=== PATIENT | male | born 1965 | race Caucasian/White ===

== ENCOUNTER 2021-04-17 13:43 | Day surgery (SDC) | payer OTHER ==
[2021-04-17] MEDS ORDERED: morphine SULFATE 4 MG/ML VIAL ONE ×2 (13:46→14:03)
[2021-04-17] MEDS ORDERED: ONDANSETRON 4 MG/2 ML VIAL ONE (13:46)
[2021-04-17] MEDS ORDERED: SODIUM CHLORIDE 0.9% 500 ML INFUS.BAG IV ONE (13:55)
[2021-04-17] MEDS ORDERED: ACETAMINOPHEN 1000 MG/100 ML VIAL IVPB ONE (13:55)
[2021-04-17 14:11] LABS: BASO % 0.3 % (0-2.0); EOS % 0.3 % (0-4.5); HEMATOCRIT 48.1 % (35.4-49); HEMOGLOBIN 16.4 GM/dL (11.7-16.9); LYMPH % 11.5 % (8-40); MCH 33.5 pg (25.7-33.7); MCHC 34.1 g/dl (32.0-35.9); MEAN CELL VOLUME 98.3 fl (80-96); MEAN PLT VOLUME 8.3 fl (7.5-11.1); MONO % 7.1 % (3.8-10.2); NEUT % 80.8 % (42.8-82.8); PLATELET COUNT 247 10^3/uL (134-434); RBC 4.89 M/mm3 (4.00-5.60); RDW 13.4 % (11.9-15.9); WHITE BLOOD COUNT 8.4 K/mm3 (4.0-10.0)
[2021-04-17 14:18] LABS: INR 1.09 (0.83-1.09); PROTHROMBIN TIME (PATIENT) 12.2 SEC (9.7-13.0)
[2021-04-17 14:21] LABS: ACTIVATED PTT 24.2 SECONDS (25.2-36.5)
[2021-04-17 14:36] LABS: CALCIUM 10.2 mg/dL (8.5-10.1)
[2021-04-17 14:37] LABS: BLOOD UREA NITROGEN 20.6 mg/dL (7-18)
[2021-04-17 14:40] LABS: CREATININE 1.2 mg/dL (0.55-1.3)
[2021-04-17 14:41] LABS: BILIRUBIN,TOTAL 0.8 mg/dL (0.2-1)
[2021-04-17] MEDS ORDERED: PIPERACILLIN/TAZOB 4.5 GM 4.5 GM in DEXTROSE 5%-WATER 100 ML IVPB ONE (14:42)
[2021-04-17 14:43] LABS: TOT PROT 7.6 g/dl (6.4-8.2)
[2021-04-17 15:02] LABS: LACTIC ACID 4.4 mmol/L (0.4-2.0)
[2021-04-17] MEDS ORDERED: PIPERACILLIN/TAZOB 4.5 GM 4.5 GM/100 ML BAG IVPB ONE (15:08)
[2021-04-17] MEDS ORDERED: morphine SULFATE 4 MG/ML VIAL IVPUSH ONE ×2 (15:16)
[2021-04-17] MEDS ORDERED: ONDANSETRON 4 MG/2 ML VIAL IVPUSH ONE (15:17)
[2021-04-17] MEDS ORDERED: PROPOFOL 20 ML ONE (17:35)
[2021-04-17] MEDS ORDERED: ROCURONIUM BROMIDE 50 MG/5 ML SYRINGE ONE (17:37)
[2021-04-17] MEDS ORDERED: MIDAZOLAM HCL 2 MG/2 ML SINGLE DOSE VIAL ONE (17:38)
[2021-04-17] MEDS ORDERED: fentaNYL CITRATE 250 MCG/5 ML VIAL ONE (17:38)
[2021-04-17 18:08] VITALS: BMI 27.1
[2021-04-17] MEDS ORDERED: ACETAMINOPHEN 325 MG TABLET (FP) PO PRN (18:12)
[2021-04-17] MEDS ORDERED: LACTATED RINGERS SOLUTION 1,000 ML IV SCH ×2 (18:15→19:27)
[2021-04-17] MEDS ORDERED: BUPIVACAINE HCL/PF 2.5 MG/ML - 30 ML VIAL IJ ONE (18:40)
[2021-04-17] MEDS ORDERED: NEOSTIGMINE METHYLSULFATE 0.5 MG/ML - 10 ML MDV ONE (18:53)
[2021-04-17] MEDS ORDERED: GLYCOPYRROLATE 0.2 MG/1 ML VIAL ONE (18:55)
[2021-04-17] MEDS ORDERED: ONDANSETRON 4 MG/2 ML VIAL IVPUSH PRN (19:17)
[2021-04-17] MEDS ORDERED: PROMETHAZINE HCL 25 MG/1 ML VIAL IVPUSH PRN (19:17)
[2021-04-17] MEDS ORDERED: ACETAMINOPHEN 1000 MG/100 ML VIAL IVPB PRN (19:18)
[2021-04-17] MEDS: LACTATED RINGERS SOLUTION 1,000 ML IV SCH (20:30)
[2021-04-17] MEDS ORDERED: GABAPENTIN 300 MG CAPSULE PO SCH (22:00)
[2021-04-17] MEDS ORDERED: traZODone HCL 50 MG TABLET (FP) PO SCH ×2 (22:00)
[2021-04-17] MEDS ORDERED: diphenhydrAMINE HCL 25 MG CAPSULE (FP) PO SCH ×2 (22:00)
[2021-04-17] MEDS: GABAPENTIN 300 MG CAPSULE PO SCH (22:08)
[2021-04-18] MEDS ORDERED: MELATONIN 5 MG TABLETS PO ONE (00:33)
[2021-04-18] MEDS: LACTATED RINGERS SOLUTION 1,000 ML IV SCH (03:22)
[2021-04-18] MEDS: GABAPENTIN 300 MG CAPSULE PO SCH (05:40)
[2021-04-18 08:31] LABS: BASO % 0.1 % (0-2.0); HEMATOCRIT 41.6 % (35.4-49); HEMOGLOBIN 14.2 GM/dL (11.7-16.9); LYMPH % 8.9 % (8-40); MCH 33.7 pg (25.7-33.7); MCHC 34.1 g/dl (32.0-35.9); MEAN CELL VOLUME 98.8 fl (80-96); MEAN PLT VOLUME 8.4 fl (7.5-11.1); PLATELET COUNT 206 10^3/uL (134-434); RBC 4.21 M/mm3 (4.00-5.60); RDW 13.1 % (11.9-15.9); WHITE BLOOD COUNT 8.7 K/mm3 (4.0-10.0)
[2021-04-18 09:05] LABS: CALCIUM 8.9 mg/dL (8.5-10.1)
[2021-04-18 09:06] LABS: BLOOD UREA NITROGEN 18.5 mg/dL (7-18)
[2021-04-18 09:07] LABS: MAGNESIUM 1.8 mg/dL (1.8-2.4)
[2021-04-18 09:08] LABS: PHOSPHOROUS 4.5 mg/dL (2.5-4.9)
[2021-04-18 09:09] LABS: CREATININE 0.9 mg/dL (0.55-1.3)
[2021-04-18 09:10] LABS: BILIRUBIN,TOTAL 0.7 mg/dL (0.2-1); TOT PROT 5.7 g/dl (6.4-8.2)
[2021-04-18 09:18] LABS: ALBUMIN 2.8 g/dl (3.4-5.0)
[2021-04-18] MEDS ORDERED: PT OWN MED DRAWER 7, Y5N ONE (09:41)
[2021-04-18] MEDS ORDERED: LOSARTAN POTASSIUM 50 MG TABLET PO SCH ×2 (10:00)
[2021-04-18] MEDS ORDERED: FLUoxetine HCL 20 MG CAPSULE PO SCH (10:00)
[2021-04-18] MEDS: FLUoxetine HCL 20 MG CAPSULE PO SCH ×2 (11:14→11:23)
[2021-04-18 16:34] VITALS: BP 138/78; PULSE 61; TEMP 98.2
== END 2021-04-18 16:23 | disposition home or self-care (01) ==
LOC: JER 13:43 → UNDOADMOB 14:01 → JERBED 14:01 → INTOOBSV 14:01 → JERBED 20:58 → J5S 20:58 → UNDOADMOB 04-18 12:30 → J5S 04-18 12:30 → JASUSAT 04-18 15:06 → UNDODISOB 04-18 16:23
PROVIDERS: ATTEND Student in an Organized Health Care Education/Training Program
PROC: 0WQF0ZZ Repair Abdominal Wall, Open Approach (ICD-10-PCS; principal; 2021-04-18)
DX: K42.0 Umbilical hernia with obstruction, without gangrene (principal)
CPT/HCPCS: 36415; 80053; 83605; 83690; 83735; 84100; 85025; 85610; 85730; 86850; 86900; 86901; 88302-TC; 93005; 93010; 94760; 97116-GP; 97161-GP; 99291; C9803; J0131; U0003; U0005

== ENCOUNTER 2022-09-29 22:07 | Inpatient (IN) | payer OTHER ==
[2022-09-29 18:46] VITALS: BMI 31.9
[2022-09-29] MEDS: hydrOXYzine PAMOATE 25 MG CAPSULE (FP) PO PRN (19:40)
[~2022-09-29 22:07] MED LIST: ACETAMINOPHEN 325 MG TABLET (FP) PO PRN; BENZOCAINE/MENTHOL (CHLORASEPTIC ) LOZENGE MM PRN; BENZONATATE 200 MG CAPSULE PO PRN; BISMUTH SUBSALICYLATE 524 MG/30 ML PO PRN; DICYCLOMINE HCL 10 MG CAPSULE PO PRN; IBUPROFEN 400 MG TABLET (FP) PO PRN; LOPERAMIDE HCL 2 MG CAPSULE PO PRN; MAG HYDROX/AL HYDROX/SIMETH 30 ML UNIT-DOSE CUP PO PRN; MAGNESIUM HYDROX 2400MG/30ML ORAL SUSPENSION 30 ML CUP PO PRN; ONDANSETRON *ODT* 4 MG TABLET SL PRN; P-EPHED 60MG/TRIPROLIDI 2.5MG TABLET PO PRN; POLYETHYLENE GLYCOL (HEALTHYLAX) 3350 17 GM PACKET PO PRN; chlordiazePOXIDE HCL 25 MG CAPSULE ONE; chlordiazePOXIDE HCL 25 MG CAPSULE PO ONE; chlordiazePOXIDE HCL 25 MG CAPSULE PO PRN; guaiFENesin 600 MG TABLET.ER (FP) PO PRN; hydrOXYzine PAMOATE 25 MG CAPSULE (FP) PO ONE
[2022-09-29] MEDS ORDERED: CLINDAMYCIN HCL 300 MG CAPSULE PO SCH (22:30)
[2022-09-29] MEDS: MELATONIN 5 MG TABLETS PO PRN (22:55)
[2022-09-29] MEDS: THIAMINE HCL 100 MG TABLET (FP) PO SCH (22:56)
[2022-09-29] MEDS: chlordiazePOXIDE HCL 25 MG CAPSULE PO SCH (22:56)
[2022-09-30] MEDS: hydrOXYzine PAMOATE 25 MG CAPSULE (FP) PO PRN ×2 (05:28→10:13)
[2022-09-30] MEDS: chlordiazePOXIDE HCL 25 MG CAPSULE PO SCH ×4 (05:28→23:03)
[2022-09-30] MEDS: CLINDAMYCIN HCL 150 MG CAPSULE (FP) PO SCH ×3 (07:08→23:03)
[2022-09-30] MEDS: PRENATAL VITAMINS W/ FOLIC ACID TABLET (FP) PO SCH (10:13)
[2022-09-30 11:10] LABS: HEMATOCRIT 43.1 % (35.4-49); HEMOGLOBIN 14.8 GM/dL (11.7-16.9); MCH 32.6 pg (25.7-33.7); MCHC 34.2 g/dl (32.0-35.9); MEAN CELL VOLUME 95.4 fl (80-96); MEAN PLT VOLUME 7.5 fl (7.5-11.1); PLATELET COUNT 138 10^3/uL (134-434); RBC 4.52 M/mm3 (4.00-5.60); RDW 14.4 % (11.9-15.9); WHITE BLOOD COUNT 6.3 K/mm3 (4.0-10.0)
[2022-09-30 11:32] LABS: CALCIUM 8.2 mg/dL (8.5-10.1)
[2022-09-30 11:33] LABS: BLOOD UREA NITROGEN 15.5 mg/dL (7-18)
[2022-09-30 11:35] LABS: CREATININE 0.8 mg/dL (0.55-1.3)
[2022-09-30 11:37] LABS: BILIRUBIN,TOTAL 1.3 mg/dL (0.2-1)
[2022-09-30] MEDS: THIAMINE HCL 100 MG TABLET (FP) PO SCH (23:03)
[2022-09-30] MEDS: GABAPENTIN 100 MG CAPSULE PO SCH (23:03)
[2022-09-30] MEDS: MELATONIN 5 MG TABLETS PO PRN (23:05)
[2022-10-01] MEDS: CLINDAMYCIN HCL 150 MG CAPSULE (FP) PO SCH ×3 (05:48→22:46)
[2022-10-01] MEDS: chlordiazePOXIDE HCL 25 MG CAPSULE PO SCH ×4 (05:48→22:46)
[2022-10-01] MEDS: GABAPENTIN 100 MG CAPSULE PO SCH ×3 (05:48→22:46)
[2022-10-01] MEDS: PRENATAL VITAMINS W/ FOLIC ACID TABLET (FP) PO SCH (10:33)
[2022-10-01] MEDS: FLUoxetine HCL 20 MG CAPSULE PO SCH (10:34)
[2022-10-01] MEDS: IBUPROFEN 600 MG TABLET (FP) PO PRN (10:35)
[2022-10-01] MEDS: hydrOXYzine PAMOATE 25 MG CAPSULE (FP) PO PRN (18:20)
[2022-10-01] MEDS: MELATONIN 5 MG TABLETS PO PRN (22:46)
[2022-10-01] MEDS: THIAMINE HCL 100 MG TABLET (FP) PO SCH (22:46)
[2022-10-02] MEDS ORDERED: chlordiazePOXIDE HCL 10 MG CAPSULE PO PRN
[2022-10-02] MEDS: CLINDAMYCIN HCL 150 MG CAPSULE (FP) PO SCH ×3 (05:29→22:18)
[2022-10-02] MEDS: GABAPENTIN 100 MG CAPSULE PO SCH ×3 (05:29→22:18)
[2022-10-02] MEDS: chlordiazePOXIDE HCL 10 MG CAPSULE PO SCH ×4 (05:29→22:18)
[2022-10-02] MEDS: PRENATAL VITAMINS W/ FOLIC ACID TABLET (FP) PO SCH (10:18)
[2022-10-02] MEDS: FLUoxetine HCL 20 MG CAPSULE PO SCH (10:18)
[2022-10-02] MEDS: MELATONIN 5 MG TABLETS PO PRN (22:18)
[2022-10-02] MEDS: THIAMINE HCL 100 MG TABLET (FP) PO SCH (22:18)
[2022-10-02] MEDS: hydrOXYzine PAMOATE 25 MG CAPSULE (FP) PO PRN (22:19)
[2022-10-03] MEDS: chlordiazePOXIDE HCL 10 MG CAPSULE PO SCH ×2 (05:27→17:37)
[2022-10-03] MEDS: CLINDAMYCIN HCL 150 MG CAPSULE (FP) PO SCH ×3 (05:28→21:59)
[2022-10-03] MEDS: GABAPENTIN 100 MG CAPSULE PO SCH ×3 (05:28→21:59)
[2022-10-03] MEDS: PRENATAL VITAMINS W/ FOLIC ACID TABLET (FP) PO SCH (10:28)
[2022-10-03] MEDS: FLUoxetine HCL 20 MG CAPSULE PO SCH (10:28)
[2022-10-03] MEDS: THIAMINE HCL 100 MG TABLET (FP) PO SCH (21:59)
[2022-10-03] MEDS: MELATONIN 5 MG TABLETS PO PRN (23:32)
[2022-10-04] MEDS: IBUPROFEN 600 MG TABLET (FP) PO PRN (02:39)
[2022-10-04] MEDS ORDERED: chlordiazePOXIDE HCL 10 MG CAPSULE PO ONE (05:00)
[2022-10-04] MEDS: CLINDAMYCIN HCL 150 MG CAPSULE (FP) PO SCH (06:03)
[2022-10-04] MEDS: GABAPENTIN 100 MG CAPSULE PO SCH (06:03)
[2022-10-04 06:32] VITALS: RESP 20
[2022-10-04 09:48] VITALS: BP 137/86; PULSE 60; TEMP 97.8
[2022-10-04] MEDS: FLUoxetine HCL 20 MG CAPSULE PO SCH (11:25)
[2022-10-04] MEDS: PRENATAL VITAMINS W/ FOLIC ACID TABLET (FP) PO SCH (11:25)
== END 2022-10-04 11:55 | disposition other institution (70) | DRG 775 ==
LOC: YASAS 22:07 → Y3N 22:27
PROVIDERS: ADMIT Allergy & Immunology; ATTEND Surgery
PROC: HZ2ZZZZ Detoxification Services for Substance Abuse Treatment (ICD-10-PCS; principal; 2022-09-29)
DX: F10.230 Alcohol dependence with withdrawal, uncomplicated (principal); F32.A Depression, unspecified; G47.00 Insomnia, unspecified; Z63.4 Disappearance and death of family member; S61.412D Laceration without foreign body of left hand, subsequent encounter; W27.0XXD Contact with workbench tool, subsequent encounter
CPT/HCPCS: 36415; 73030-TC-RT-FY; 80053; 83036; 85027; 86780; 90715; 99282-25; C9803-CS; U0003; U0005